=== PATIENT | female | born 1980 | race Caucasian/White ===

== ENCOUNTER 2017-04-10 22:58 | Emergency (ER) | payer OTHER ==
--- NOTE | 2017-04-11 03:05 | ED NURSING NOTES ---
Clinical Report - Nurses [facility] [address] [place] [address] 04/10/2017 23:01 Patient: WAGNER WOODS TRIAGE Triage time 23:12. Acuity: LEVEL 3. --23:22 Torrey Leggett R.N. 23:12 04/10/17. BP: 109/63. HR: 73. RR: 16. O2 saturation: 100%. Temp: 98 F. --23:22 Torrey Leggett R.N. Chief Complaint: ABDOMINAL PAIN. 23:12 04/10/17. --03:23 Torrey Leggett R.N. 23:11 04/10/17. Pain level now 7/10. --03:24 Torrey Leggett R.N. Weight: 61.2 kg. Height/Length: 68 inches. BMI: 20.5. --23:12 Torrey Leggett R.N. Medications None. --23:16 Torrey Leggett R.N. Medication/allergy information source: the patient. --23:22 Torrey Leggett R.N. Allergies No Known Drug Allergy. --23:15 Torrey Leggett R.N. History Arrived by private vehicle. Historian: patient. Accompanied by friend. ( Noticed lump on the right lower quadrant abdomen for about a year and has gotten bigger since. No abdominal pain, nausea or vomiting associated. Patient states that it has not been investigated since she noticed it a year ago.). Last oral intake by patient was (6 hours ago). Treatment CONGRESSIONAL ASSISTANT: None. PAST MEDICAL HX: Last normal menstrual period- started yesterday. SURGERY HX: . Left knee surgery. ( brain biopsy, brain tumor removed 2011). SOCIAL HX: Light tobacco smoker- less than 1/2 a pack per day. Occasional alcohol use. --23:22 Torrey Leggett R.N. PROBLEMS: Cancer. --23:17 Torrey Leggett R.N. Interventions ID band on patient. To room. --23:22 Torrey Leggett R.N. PHYSICAL ASSESSMENT Ambulatory to room. GENERAL / NEURO / PSYCH: Alert. Oriented X 4. Appears in no acute distress. HEENT: Mucous membranes are pink. RESPIRATORY: Respirations not labored. Breath sounds within normal limits. CVS: Normal sinus rhythm noted. GI / : Abdomen soft and nontender. Moderate mass present in the right lower quadrant. Bowel sounds within normal limits. SKIN: Skin is warm and dry. --23:24 Torrey Leggett R.N. NURSING PROGRESS NOTES Patient gowned. Head of bed elevated. Reassurance given. Patient identifiers checked. Call light placed in reach. Side rails up x 1. Bed placed in lowest position. Brakes of bed on. --23:24 Torrey Leggett R.N. 00:11 04/11/2017 Site #1 started via IV in the right antecubital space with an 20g angiocath; one attempt. Blood drawn: rainbow set. Labeled in the presence of the patient. Saline lock flushed with 10 mL saline (lactate). --00:16 Torrey Leggett R.N. 00:23 04/11/2017 Morphine IVP 4 mg given over 5 minute(s) via site #1. Allergies verified, confirmed 5 rights and sedative warning given to the patient. IV patency established. IV site checked: no pain, redness, or swelling. IV flushed thoroughly pre- and post-medication administration. IVP given by RN. --00:23 Torrey Leggett R.N. 00:00 04/11/17. BP: 105/67. HR: 71. RR: 16. O2 saturation: 100%. Temp: deferred. Pain level now: 05/10. --00:25 Torrey Leggett R.N. 00:50 04/11/17. BP: 97/65. HR: 71. RR: 16. O2 saturation: 100%. --00:51 Torrey Leggett R.N. Reassessment after medication administered (Morphine). She is resting quietly. Overall patient status is improved. GI / : The patient reports abdominal pain located in the LLQ. --00:51 Torrey Leggett R.N. 01:17 04/11/2017 Morphine IVP 4 mg given over 5 minute(s) via site #1. Allergies verified, confirmed 5 rights and sedative warning given to the patient and patient's quilt sewer. IV patency established. IV site checked: no pain, redness, or swelling. IV flushed thoroughly pre- and post-medication administration. IVP given by RN. --01:17 Torrey Leggett R.N. Reassessment after intervention (ER Physician trying to reduce hernia). She is calm. Overall patient status is the same- she states feels the same. GI / : The patient reports abdominal pain located in the RLQ. --01:19 Torrey Leggett R.N. <<STRICKEN ENTRY-- 01:18 04/11/17. BP: 105/67. HR: 81. RR: 16. O2 saturation: 100% at 5 liters/minute. --01:19 Torrey Leggett R.N. --END STRIKE>> Correction --02:48 Torrey Leggett R.N. Patient ID band checked for patient name and birthdate: patient confirmed. Instructions provided to collect clean catch urine and patient verbalized understanding. Clean catch urine collected with return of yellow-colored clear urine; odor is normal; sample sent to lab for urinalysis, culture and HCG. Specimen labeled in the presence of the patient. Reassessment after medication administered (Morphine). GI / : The patient reports abdominal pain located in the RLQ is still present but improving and currently mild in severity. --01:51 Torrey Leggett R.N. 01:49 04/11/17. BP: 114/61. HR: 81. RR: 16. O2 saturation: 100%. --01:51 Torrey Leggett R.N. Patient transported to CT. --02:13 Kati Bah 02:27 04/11/17. BP: 108/68. HR: 83. RR: 18. O2 saturation: 100%. Pain level now: 10. --02:28 Kati Bah The patient is resting quietly. --02:28 Kati Bah 01:18 04/11/17. BP: 105/67. HR: 81. RR: 16. O2 saturation: 100% on room air. Pain level now: 04/09. --02:55 Torrey Leggett R.N. DISPOSITION / DISCHARGE Condition at departure: improved. No learning barriers present. Discharge instructions provided and reviewed with the patient. Reviewed medication(s) side effects, precautions, dosing and course information. Prescription(s) given to the patient. Reviewed referral to an oncologist for followup. Summary of care provided to patient. Patient verbalized understanding. Written instructions provided in Hungarian. The patient was discharged home and accompanied by quilt sewer and friend. She left the Emergency Department ambulatory and via private vehicle. Engineer And Geologist driving (friend). --03:20 Torrey Leggett R.N. 03:18 04/11/17. BP: 109/65. HR: 77. RR: 16. O2 saturation: 100%. Temp: 97.4 F. Pain level now: 04/09. --03:20 Torrey Leggett R.N. 03:16 04/11/2017 Site #1 removed upon discharge. Manual pressure and bandaid applied. --03:21 Torrey Leggett R.N. Departure time: 03:21. --03:21 Torrey Leggett R.N. Locked/Released at 04/11/2017 3:24 by Torrey Leggett R.N.
--- NOTE | 2017-04-11 03:05 | ED CLINICAL REPORT ---
Clinical Report - Physicians/Mid Levels [facility] [address] [place] [address] 04/10/2017 23:01 Patient: WAGNER WOODS Time Seen: 2335. Arrived- By private vehicle. Historian- patient. HISTORY OF PRESENT ILLNESS Chief Complaint: ABDOMINAL PAIN. At its maximum, severity described as moderate. When seen in the E.D., severity described as moderate. Modifying factors- worsened by movement. Relieved by rest. It is described as "pain". No radiation. It is described as located in the right lower quadrant. This started past year and is still present and worsening. It was gradual in onset and has been constant but is not gone now. No nausea, loss of appetite, vomiting or diarrhea. No additional abdominal pain. No recent travel. Similar symptoms previously: None. Recent medical care: Not recently seen/assessed. REVIEW OF SYSTEMS No skin rash. All systems otherwise negative, except as recorded above. PAST HISTORY See nurses notes. Medications: None. Allergies: No Known Drug Allergy. SOCIAL HISTORY Never smoker. No alcohol use or drug use. Recent travel- (from [place]). Is a local resident. ADDITIONAL NOTES The nursing notes have been reviewed. PHYSICAL EXAM Vital Signs: 04/10/2017 23:12 BP: 109/63. HR: 73. RR: 16. O2 saturation: 100%. Temp: 98 F. Blood pressure normal. Oxygen saturation normal. Appearance: Alert. Oriented X3. No acute distress. Eyes: Pupils equal, round and reactive to light. Eyes normal inspection. ENT: Ears normal. Nose normal. Pharynx normal. Neck: Normal inspection. Neck supple. CVS: Normal heart rate and rhythm. Heart sounds normal. Pulses normal. Respiratory: No respiratory distress. Breath sounds normal. Chest nontender. Abdomen: Soft. Bowel sounds normal. (right sided abdominal wall bulge that appears to get smaller with constant direct pressure. no overlying skin changes. mild tenderness. it is regular and hard.). Skin: Skin warm and dry. Normal skin color. No rash. Normal skin turgor. Extremities: Extremities exhibit normal ROM. No lower extremity edema. LABS, X-RAYS, AND EKG Laboratory Tests: UA-Culture if indicated: (JENNIFER: 04/11/2017 01:45) ( [facility] 04/11/2017 02:02) Final results Test Result Flag Units (Reference) URINE COLOR YELLOW URINE APPEARANCE CLEAR URINE GLUCOSE NEGATIVE (NEGATIVE) URINE BILIRUBIN NEGATIVE (NEGATIVE) URINE KETONE NEGATIVE (NEGATIVE) URINE SPECIFIC GRAVITY <= 1.005 L (1.010-1.030) URINE PH 6.0 (5.0-8.0) URINE PROTEIN NEGATIVE (NEGATIVE) URINE UROBILINOGEN 0.2 EU/dL (0.2-1.0) URINE NITRITE NEGATIVE (NEGATIVE) URINE BLOOD 3+ (NEGATIVE) URINE LEUK ESTERASE NEGATIVE (NEGATIVE) URINE RBC 0-1 rbc/hpf (0-1) URINE WBC RARE wbc/hpf (0-1) URINE EPITHELIAL CELLS 3-5 EPI/hpf (0-5) URINE BACTERIA TRACE (<1+) (NONE SEEN) URINE COMMENT CULT NOT INDICATED FEW SODIUM URATE CRYSTALS.URINE CULTURES ARE SET-UP BASED ON THE FOLLOWING CRITERIA:POSITIVE NITRITEPOSITIVE LEUKOCYTE ESTERASEGREATER THAN 10 WHITE BLOOD CELLSMODERATE (2+) OR GREATER BACTERIA Urine: (JENNIFER: 04/11/2017 01:45) ( [facility] 04/11/2017 01:54) Final results Test Result Flag Units (Reference) URINE NEGATIVE CBC w Diff: (JENNIFER: 04/10/2017 00:10) ( [facility] 04/11/2017 00:23) Final results Test Result Flag Units (Reference) WHITE BLOOD COUNT 6.1 K/uL (4.5-11.5) RED BLOOD COUNT 3.79 L M/uL (4.00-5.20) HEMOGLOBIN 11.1 L gm/dL (12.0-16.0) HEMATOCRIT 33.4 L % (36.0-46.0) MEAN CELL VOLUME 88 fL (80-100) MEAN CORPUSCULAR HGB 29 pg (26-34) MEAN CORPUSCULAR HGB CONC 33 g/dL (31-37) RED CELL DISTRIBUTION WIDTH 14.0 % (11.6-14.8) PLATELET COUNT 245 K/uL (150-400) NEUTROPHIL % 52.4 % (50-75) LYMPH % 36.8 % (25-40) MONO % 7.2 % (3-14) EOSINOPHIL % 2.5 % (0-4) BASOPHIL % 1.1 % (0-2) Lactate, Serum: (JENNIFER: 04/10/2017 00:10) ( MsgRcvd 04/11/2017 00:44) Final results Test Result Flag Units (Reference) LACTIC ACID 0.8 mmol/L (0.4-2.0) CMP: (JENNIFER: 04/10/2017 00:10) ( MsgRcvd 04/11/2017 00:37) Final results Test Result Flag Units (Reference) GLUCOSE 87 mg/dL (70-110) BUN 10 mg/dL (7-18) CREATININE 0.8 mg/dL (0.6-1.3) Estimated GFR >60 mL/min Estimated GFR- >60 mL/min Note: Persistent reduction over 3 months in eGFR<60 mL/min/1.73 m2 defines CKD. Patients with eGFR values>=60 mL/min/1.73 m2 may also have CKD if evidence ofpersistent proteinuria. Additional information may be foundat www.kidney.org. SODIUM 144 mmol/L (136-145) POTASSIUM 3.6 mmol/L (3.5-5.1) CHLORIDE 105 mmol/L (98-107) CARBON DIOXIDE 30 mmol/L (21-32) CALCIUM 8.7 mg/dL (8.5-10.1) TOTAL PROTEIN 7.2 g/dL (6.4-8.2) ALBUMIN 3.9 g/dL (3.3-5.0) BILIRUBIN, TOTAL 0.3 mg/dL (0.0-1.0) ALKALINE PHOSPHATASE 52 U/L (46-116) AST (SGOT) 11 L U/L (15-37) ALT (SGPT) 19 U/L (12-78) . PROGRESS AND PROCEDURES Course of Care: he patient is a pleasant 36-year-old female withCompaqs past medical history presenting for a vaginal right-sided inguinal mass. On examination, mass appeared to be consistent with right-sided inguinal hernia. Was able to slightly reduce themass on examination with gradual firm pressure to the right groin. Because of this, hernia was likely favored. Laboratory studies were ordered once the first attempt at reduction was not successful. Pain medication was ordered. Had a discussion with patient in regards to the working diagnosis at this time. Also considered inguinal lymphadenopathy versus hematoma. Patient's laboratory studies were noted to be unremarkable. Was unable to reduce the patient's mass on examination. Because of the abnormal circumstances of the patient's history and presentation, was concerned for other etiologies for the patient's inguinal mass. CT scan of the patient's abdomen and pelvis was ordered with contrast. Patient was agreeable to the treatment plan. No other acute findings noted. Patient CT scan was significant for the findings above. No concern for hernia noted. Patient with history of glioblastoma. Would be concerning for metastasis or other malignant etiology. Had a discussion with the patient in regards to the CT scan results and need for follow-up with oncology. Patient states that she does not have an oncologist here as she recently moved here about a month ago. Patient also reports not having a primary care Dr. Was able to find information regards to a oncologist in the area. As well as a primary care office. Discussed with the patient workup here in emergency department: Diagnosis, home care, follow-up, and return precautions. All questions have been answered. The patient expressed understanding of these instructions and was agreeable to them. Disposition: Discharged. Condition: good. CLINICAL IMPRESSION Acute right lower quadrant abdominal pain. 04/10/2017 23:12 BP: 109/63. HR: 73. RR: 16. O2 saturation: 100%. Temp: 98 F. Blood pressure normal. Oxygen saturation normal. Acute right inguinal lymphadenitis INSTRUCTIONS Warnings: SEDATIVE MEDICATION: You were given sedative medication during your visit. Do not drive or operate dangerous machinery. GENERAL WARNINGS: Return or contact your physician immediately if your condition worsens or changes unexpectedly, if not improving as expected, or if other problems arise. SPECIFICALLY, return if you develop pain, fever, vomiting, the inability to keep fluids down, blood in vomitus, blood in diarrhea, fainting or lightheadedness. Your Current Medications: CONTINUE TAKING THE FOLLOWING MEDICATIONS: None*. Prescription Medications: [place] 5 mg / 325 mg tablets: take 1 orally every 6 hours as needed for pain. Dispense twelve (12). No refill. Substitution is permissible. Motrin 600 mg tablets: take 1 tablet orally every 6 hours as needed for pain or swelling. Dispense thirty (30). No refill. Substitution is permissible. (take with food) Follow-up: Return to the emergency department as needed. Follow up with [facility] in three days. Call for an appointment. Reason for referral: . Establish care. Continuity of care. . Summary of care provided to patient via paper. Follow up with a specialist oncology. Call for the next available appointment. Reason for referral: [address] [place] [address]. . Summary of care provided to patient via paper. Screening today revealed the patient's blood pressure to be in the normal range. The patient should follow up with a primary care provider for blood pressure management. Understanding of the discharge instructions verbalized by patient. (Electronically signed by Patrick Rosa Dr. 04/12/2017 6:49)
--- NOTE | 2017-04-11 03:05 | ED ORDER SUMMARY ---
..... Patient: WAGNER WOODS OrderSheet [facility] VisitID: [id number] [address] [place] [address] 36y, F Registration Date/Time: 04/10/2017 ORDER SHEET Weight: 61.2 kg Allergies: No Known Drug Allergy GENERAL ORDERS: CBC w Diff Urgent (23:49 04/10/2017 Tyson Caputo) (Ack 23:55 LMuller) (0:01 Anjana R.N.) CMP Urgent (23:49 04/10/2017 Tyson Caputo) (Ack 23:55 LMuller) (0:01 Anjana R.N.) Lactate, Serum Urgent (:49 04/10/2017 Tyson Caputo) (Ack 23:55 LMuller) (0:01 Anjana R.N.) Pulse oximeter (:49 04/10/2017 Tyson Caputo) (0:01 Anjana R.N.) UA-Culture if indicated Urgent (01:36 04/11/2017 Tyson Caputo) (Ack 1:44 LMuller) (1:48 Anjana R.N.) Urine Urgent (:04/11/2017 Tyson Caputo) (Ack 1:44 LMuller) (1:48 Anjana R.N.) CT Abd/Pel w Cont (No) (gfr >60) Urgent (:36 04/11/2017 Tyson Caputo) (Ack 1:44 LMuller) (2:23 Jaclynger) MEDICATION ORDERS: IV FLUIDS: Morphine IV 4 mg (HIGH ALERT MEDICATION, NOW) (23:49 04/10/2017 Tyson Caputo) (Ack 0:01 Anjana R.N.) (0:23 Anjana R.N.) IV Saline Lock (:49 04/10/2017 Tyson Caputo) (Ack 0:01 Anjana R.N.) (0:16 Anjana R.N.) Morphine IV 4 mg (HIGH ALERT MEDICATION, NOW) (01:08 04/11/2017 Tyson aCputo) (1:17 Anjana R.N.) ORDER SHEET NOTES: [Electronically signed by Torrey Leggett R.N. (03:04/11/2017)] [Electronically signed by Patrick Rosa Dr. (06:49 04/12/2017)] [Electronically locked/signed by Torrey Leggett R.N. (:04/11/2017)]
--- NOTE | 2017-04-11 03:05 | ED ORDER SUMMARY ---
..... Patient: WAGNER WOODS OrderSheet [facility] VisitID: [id number] [address] [place] [address] 36y, F Registration Date/Time: 04/10/2017 ORDER SHEET Weight: 61.2 kg Allergies: No Known Drug Allergy GENERAL ORDERS: CBC w Diff Urgent (23:49 04/10/2017 Tyson Caputo) (Ack 23:55 LMuller) (0:01 Anjana R.N.) CMP Urgent (23:49 04/10/2017 Tyson Caputo) (Ack 23:55 LMuller) (0:01 Anjana R.N.) Lactate, Serum Urgent (:49 04/10/2017 Tyson Caputo) (Ack 23:55 LMuller) (0:01 Anjana R.N.) Pulse oximeter (:49 04/10/2017 Tyson Caputo) (0:01 Anjana R.N.) UA-Culture if indicated Urgent (01:36 04/11/2017 Tyson Caputo) (Ack 1:44 LMuller) (1:48 Anjana R.N.) Urine Urgent (:04/11/2017 Tyson Caputo) (Ack 1:44 LMuller) (1:48 Anjana R.N.) CT Abd/Pel w Cont (No) (gfr >60) Urgent (:36 04/11/2017 Tyson Caputo) (Ack 1:44 LMuller) (2:23 Jaclynger) MEDICATION ORDERS: IV FLUIDS: Morphine IV 4 mg (HIGH ALERT MEDICATION, NOW) (23:49 04/10/2017 Tyson Caputo) (Ack 0:01 Anjana R.N.) (0:23 Anjana R.N.) IV Saline Lock (:49 04/10/2017 Tyson Caputo) (Ack 0:01 Anjana R.N.) (0:16 Anjana R.N.) Morphine IV 4 mg (HIGH ALERT MEDICATION, NOW) (01:08 04/11/2017 Tyson Caputo) (1:17 Anjana R.N.) ORDER SHEET NOTES: [Electronically signed by Torrey Leggett R.N. (03:04/11/2017)] [Electronically signed by Patrick Rosa Dr. (06:49 04/12/2017)] [Electronically locked/signed by Torrey Leggett R.N. (:04/11/2017)]
--- NOTE | 2017-04-11 03:05 | ED CLINICAL REPORT ---
Clinical Report - Physicians/Mid Levels [facility] [address] [place] [address] 04/10/2017 23:01 Patient: WAGNER WOODS Time Seen: [id number]. Arrived- By private vehicle. Historian- patient. HISTORY OF PRESENT ILLNESS Chief Complaint: ABDOMINAL PAIN. At its maximum, severity described as moderate. When seen in the E.D., severity described as moderate. Modifying factors- worsened by movement. Relieved by rest. It is described as "pain". No radiation. It is described as located in the right lower quadrant. This started past year and is still present and worsening. It was gradual in onset and has been constant but is not gone now. No nausea, loss of appetite, vomiting or diarrhea. No additional abdominal pain. No recent travel. Similar symptoms previously: None. Recent medical care: Not recently seen/assessed. REVIEW OF SYSTEMS No skin rash. All systems otherwise negative, except as recorded above. PAST HISTORY See nurses notes. Medications: None. Allergies: No Known Drug Allergy. SOCIAL HISTORY Never smoker. No alcohol use or drug use. Recent travel- (from [place]). Is a local resident. ADDITIONAL NOTES The nursing notes have been reviewed. PHYSICAL EXAM Vital Signs: 04/10/2017 23:12 BP: 109/63. HR: 73. RR: 16. O2 saturation: 100%. Temp: 98 F. Blood pressure normal. Oxygen saturation normal. Appearance: Alert. Oriented X3. No acute distress. Eyes: Pupils equal, round and reactive to light. Eyes normal inspection. ENT: Ears normal. Nose normal. Pharynx normal. Neck: Normal inspection. Neck supple. CVS: Normal heart rate and rhythm. Heart sounds normal. Pulses normal. Respiratory: No respiratory distress. Breath sounds normal. Chest nontender. Abdomen: Soft. Bowel sounds normal. (right sided abdominal wall bulge that appears to get smaller with constant direct pressure. no overlying skin changes. mild tenderness. it is regular and hard.). Skin: Skin warm and dry. Normal skin color. No rash. Normal skin turgor. Extremities: Extremities exhibit normal ROM. No lower extremity edema. LABS, X-RAYS, AND EKG Laboratory Tests: UA-Culture if indicated: (JENNIFER: 04/11/2017 01:45) ( [facility] 04/11/2017 02:02) Final results Test Result Flag Units (Reference) URINE COLOR YELLOW URINE APPEARANCE CLEAR URINE GLUCOSE NEGATIVE (NEGATIVE) URINE BILIRUBIN NEGATIVE (NEGATIVE) URINE KETONE NEGATIVE (NEGATIVE) URINE SPECIFIC GRAVITY <= 1.005 L (1.010-1.030) URINE PH 6.0 (5.0-8.0) URINE PROTEIN NEGATIVE (NEGATIVE) URINE UROBILINOGEN 0.2 EU/dL (0.2-1.0) URINE NITRITE NEGATIVE (NEGATIVE) URINE BLOOD 3+ (NEGATIVE) URINE LEUK ESTERASE NEGATIVE (NEGATIVE) URINE RBC 0-1 rbc/hpf (0-1) URINE WBC RARE wbc/hpf (0-1) URINE EPITHELIAL CELLS 3-5 EPI/hpf (0-5) URINE BACTERIA TRACE (<1+) (NONE SEEN) URINE COMMENT CULT NOT INDICATED FEW SODIUM URATE CRYSTALS.URINE CULTURES ARE SET-UP BASED ON THE FOLLOWING CRITERIA:POSITIVE NITRITEPOSITIVE LEUKOCYTE ESTERASEGREATER THAN 10 WHITE BLOOD CELLSMODERATE (2+) OR GREATER BACTERIA Urine: (JENNIFER: 04/11/2017 01:45) ( [facility] 04/11/2017 01:54) Final results Test Result Flag Units (Reference) URINE NEGATIVE CBC w Diff: (JENNIFER: 04/10/2017 00:10) ( [facility] 04/11/2017 00:23) Final results Test Result Flag Units (Reference) WHITE BLOOD COUNT 6.1 K/uL (4.5-11.5) RED BLOOD COUNT 3.79 L M/uL (4.00-5.20) HEMOGLOBIN 11.1 L gm/dL (12.0-16.0) HEMATOCRIT 33.4 L % (36.0-46.0) MEAN CELL VOLUME 88 fL (80-100) MEAN CORPUSCULAR HGB 29 pg (26-34) MEAN CORPUSCULAR HGB CONC 33 g/dL (31-37) RED CELL DISTRIBUTION WIDTH 14.0 % (11.6-14.8) PLATELET COUNT 245 K/uL (150-400) NEUTROPHIL % 52.4 % (50-75) LYMPH % 36.8 % (25-40) MONO % 7.2 % (3-14) EOSINOPHIL % 2.5 % (0-4) BASOPHIL % 1.1 % (0-2) Lactate, Serum: (JENNIFER: 04/10/2017 00:10) ( MsgRcvd 04/11/2017 00:44) Final results Test Result Flag Units (Reference) LACTIC ACID 0.8 mmol/L (0.4-2.0) CMP: (JENNIFER: 04/10/2017 00:10) ( MsgRcvd 04/11/2017 00:37) Final results Test Result Flag Units (Reference) GLUCOSE 87 mg/dL (70-110) BUN 10 mg/dL (7-18) CREATININE 0.8 mg/dL (0.6-1.3) Estimated GFR >60 mL/min Estimated GFR- >60 mL/min Note: Persistent reduction over 3 months in eGFR<60 mL/min/1.73 m2 defines CKD. Patients with eGFR values>=60 mL/min/1.73 m2 may also have CKD if evidence ofpersistent proteinuria. Additional information may be foundat www.kidney.org. SODIUM 144 mmol/L (136-145) POTASSIUM 3.6 mmol/L (3.5-5.1) CHLORIDE 105 mmol/L (98-107) CARBON DIOXIDE 30 mmol/L (21-32) CALCIUM 8.7 mg/dL (8.5-10.1) TOTAL PROTEIN 7.2 g/dL (6.4-8.2) ALBUMIN 3.9 g/dL (3.3-5.0) BILIRUBIN, TOTAL 0.3 mg/dL (0.0-1.0) ALKALINE PHOSPHATASE 52 U/L (46-116) AST (SGOT) 11 L U/L (15-37) ALT (SGPT) 19 U/L (12-78) . PROGRESS AND PROCEDURES Course of Care: he patient is a pleasant 36-year-old female withCompaqs past medical history presenting for a vaginal right-sided inguinal mass. On examination, mass appeared to be consistent with right-sided inguinal hernia. Was able to slightly reduce themass on examination with gradual firm pressure to the right groin. Because of this, hernia was likely favored. Laboratory studies were ordered once the first attempt at reduction was not successful. Pain medication was ordered. Had a discussion with patient in regards to the working diagnosis at this time. Also considered inguinal lymphadenopathy versus hematoma. Patient's laboratory studies were noted to be unremarkable. Was unable to reduce the patient's mass on examination. Because of the abnormal circumstances of the patient's history and presentation, was concerned for other etiologies for the patient's inguinal mass. CT scan of the patient's abdomen and pelvis was ordered with contrast. Patient was agreeable to the treatment plan. No other acute findings noted. Patient CT scan was significant for the findings above. No concern for hernia noted. Patient with history of glioblastoma. Would be concerning for metastasis or other malignant etiology. Had a discussion with the patient in regards to the CT scan results and need for follow-up with oncology. Patient states that she does not have an oncologist here as she recently moved here about a month ago. Patient also reports not having a primary care Dr. Was able to find information regards to a oncologist in the area. As well as a primary care office. Discussed with the patient workup here in emergency department: Diagnosis, home care, follow-up, and return precautions. All questions have been answered. The patient expressed understanding of these instructions and was agreeable to them. Disposition: Discharged. Condition: good. CLINICAL IMPRESSION Acute right lower quadrant abdominal pain. 04/10/2017 23:12 BP: 109/63. HR: 73. RR: 16. O2 saturation: 100%. Temp: 98 F. Blood pressure normal. Oxygen saturation normal. Acute right inguinal lymphadenitis INSTRUCTIONS Warnings: SEDATIVE MEDICATION: You were given sedative medication during your visit. Do not drive or operate dangerous machinery. GENERAL WARNINGS: Return or contact your physician immediately if your condition worsens or changes unexpectedly, if not improving as expected, or if other problems arise. SPECIFICALLY, return if you develop pain, fever, vomiting, the inability to keep fluids down, blood in vomitus, blood in diarrhea, fainting or lightheadedness. Your Current Medications: CONTINUE TAKING THE FOLLOWING MEDICATIONS: None*. Prescription Medications: [place] 5 mg / 325 mg tablets: take 1 orally every 6 hours as needed for pain. Dispense twelve (12). No refill. Substitution is permissible. Motrin 600 mg tablets: take 1 tablet orally every 6 hours as needed for pain or swelling. Dispense thirty (30). No refill. Substitution is permissible. (take with food) Follow-up: Return to the emergency department as needed. Follow up with [facility] in three days. Call for an appointment. Reason for referral: . Establish care. Continuity of care. . Summary of care provided to patient via paper. Follow up with a specialist oncology. Call for the next available appointment. Reason for referral: [address] [place] [address]. . Summary of care provided to patient via paper. Screening today revealed the patient's blood pressure to be in the normal range. The patient should follow up with a primary care provider for blood pressure management. Understanding of the discharge instructions verbalized by patient. (Electronically signed by Patrick Rosa Dr. 04/12/2017 6:49)
--- NOTE | 2017-04-11 03:05 | ED NURSING NOTES ---
Clinical Report - Nurses [facility] [address] [place] [address] 04/10/2017 23:01 Patient: WAGNER WOODS TRIAGE Triage time 23:12. Acuity: LEVEL 3. --23:22 Torrey Leggett R.N. 23:12 04/10/17. BP: 109/63. HR: 73. RR: 16. O2 saturation: 100%. Temp: 98 F. --23:22 Torrey Leggett R.N. Chief Complaint: ABDOMINAL PAIN. 23:12 04/10/17. --03:23 Torrey Leggett R.N. 23:11 04/10/17. Pain level now 7/10. --03:24 Torrey Leggett R.N. Weight: 61.2 kg. Height/Length: 68 inches. BMI: 20.5. --23:12 Torrey Leggett R.N. Medications None. --23:16 Torrey Leggett R.N. Medication/allergy information source: the patient. --23:22 Torrey Leggett R.N. Allergies No Known Drug Allergy. --23:15 Torrey Leggett R.N. History Arrived by private vehicle. Historian: patient. Accompanied by friend. ( Noticed lump on the right lower quadrant abdomen for about a year and has gotten bigger since. No abdominal pain, nausea or vomiting associated. Patient states that it has not been investigated since she noticed it a year ago.). Last oral intake by patient was (6 hours ago). Treatment PICKING MACHINE OPERATOR: None. PAST MEDICAL HX: Last normal menstrual period- started yesterday. SURGERY HX: . Left knee surgery. ( brain biopsy, brain tumor removed 2011). SOCIAL HX: Light tobacco smoker- less than 1/2 a pack per day. Occasional alcohol use. --23:22 Torrey Leggett R.N. PROBLEMS: Cancer. --23:17 Torrey Leggett R.N. Interventions ID band on patient. To room. --23:22 Torrey Leggett R.N. PHYSICAL ASSESSMENT Ambulatory to room. GENERAL / NEURO / PSYCH: Alert. Oriented X 4. Appears in no acute distress. HEENT: Mucous membranes are pink. RESPIRATORY: Respirations not labored. Breath sounds within normal limits. CVS: Normal sinus rhythm noted. GI / : Abdomen soft and nontender. Moderate mass present in the right lower quadrant. Bowel sounds within normal limits. SKIN: Skin is warm and dry. --23:24 Torrey Leggett R.N. NURSING PROGRESS NOTES Patient gowned. Head of bed elevated. Reassurance given. Patient identifiers checked. Call light placed in reach. Side rails up x 1. Bed placed in lowest position. Brakes of bed on. --23:24 Torrey Leggett R.N. 00:11 04/11/2017 Site #1 started via IV in the right antecubital space with an 20g angiocath; one attempt. Blood drawn: rainbow set. Labeled in the presence of the patient. Saline lock flushed with 10 mL saline (lactate). --00:16 Torrey Leggett R.N. 00:23 04/11/2017 Morphine IVP 4 mg given over 5 minute(s) via site #1. Allergies verified, confirmed 5 rights and sedative warning given to the patient. IV patency established. IV site checked: no pain, redness, or swelling. IV flushed thoroughly pre- and post-medication administration. IVP given by RN. --00:23 Torrey Leggett R.N. 00:00 04/11/17. BP: 105/67. HR: 71. RR: 16. O2 saturation: 100%. Temp: deferred. Pain level now: 05/10. --00:25 Torrey Leggett R.N. 00:50 04/11/17. BP: 97/65. HR: 71. RR: 16. O2 saturation: 100%. --00:51 Torrey Leggett R.N. Reassessment after medication administered (Morphine). She is resting quietly. Overall patient status is improved. GI / : The patient reports abdominal pain located in the LLQ. --00:51 Torrey Leggett R.N. 01:17 04/11/2017 Morphine IVP 4 mg given over 5 minute(s) via site #1. Allergies verified, confirmed 5 rights and sedative warning given to the patient and patient's manager fine. IV patency established. IV site checked: no pain, redness, or swelling. IV flushed thoroughly pre- and post-medication administration. IVP given by RN. --01:17 Torrey Leggett R.N. Reassessment after intervention (ER Physician trying to reduce hernia). She is calm. Overall patient status is the same- she states feels the same. GI / : The patient reports abdominal pain located in the RLQ. --01:19 Torrey Leggett R.N. <<STRICKEN ENTRY-- 01:18 04/11/17. BP: 105/67. HR: 81. RR: 16. O2 saturation: 100% at 5 liters/minute. --01:19 Torrey Leggett R.N. --END STRIKE>> Correction --02:48 Torrey Leggett R.N. Patient ID band checked for patient name and birthdate: patient confirmed. Instructions provided to collect clean catch urine and patient verbalized understanding. Clean catch urine collected with return of yellow-colored clear urine; odor is normal; sample sent to lab for urinalysis, culture and HCG. Specimen labeled in the presence of the patient. Reassessment after medication administered (Morphine). GI / : The patient reports abdominal pain located in the RLQ is still present but improving and currently mild in severity. --01:51 Torrey Leggett R.N. 01:49 04/11/17. BP: 114/61. HR: 81. RR: 16. O2 saturation: 100%. --01:51 Torrey Leggett R.N. Patient transported to CT. --02:13 Kati Bah 02:27 04/11/17. BP: 108/68. HR: 83. RR: 18. O2 saturation: 100%. Pain level now: 10. --02:28 Kati Bah The patient is resting quietly. --02:28 Kati Bah 01:18 04/11/17. BP: 105/67. HR: 81. RR: 16. O2 saturation: 100% on room air. Pain level now: 04/09. --02:55 Torrey Leggett R.N. DISPOSITION / DISCHARGE Condition at departure: improved. No learning barriers present. Discharge instructions provided and reviewed with the patient. Reviewed medication(s) side effects, precautions, dosing and course information. Prescription(s) given to the patient. Reviewed referral to an oncologist for followup. Summary of care provided to patient. Patient verbalized understanding. Written instructions provided in Amharic. The patient was discharged home and accompanied by manager fine and friend. She left the Emergency Department ambulatory and via private vehicle. Scraper Hand driving (friend). --03:20 Torrey Leggett R.N. 03:18 04/11/17. BP: 109/65. HR: 77. RR: 16. O2 saturation: 100%. Temp: 97.4 F. Pain level now: 04/09. --03:20 Torrey Leggett R.N. 03:16 04/11/2017 Site #1 removed upon discharge. Manual pressure and bandaid applied. --03:21 Torrey Leggett R.N. Departure time: 03:21. --03:21 Torrey Leggett R.N. Locked/Released at 04/11/2017 3:24 by Torrey Leggett R.N.
--- NOTE | 2017-04-11 10:50 | DIAGNOSTIC IMAGING REPORT ---
PROCEDURE: ABDOMEN/PELVIS WITH CONTRAST CLINICAL INDICATION: LIKELY RIGHT INGUINAL HERNIA/MASS TECHNIQUE: 125 ml of Isovue 300 were injected intravenously and axial images were obtained of the abdomen and pelvis with sagittal and coronal reformations. COMPARISON: None. FINDINGS: ABDOMEN: Clear lung bases. Normal sized heart. No hiatal hernia. The liver, gallbladder, adrenal glands, kidneys, pancreas and spleen are normal. The abdominal aorta is normal in its course and caliber. There are no suspicious calcifications, retroperitoneal adenopathy or masses. The stomach, upper bowel loops, and mesentery are normal. No free fluid or inflammation. Ovoid soft tissue mass in the right anterior abdominal wall arising above the inguinal canal measuring approximately 2.4 x 1.9 x 2.2 cm. Its epicenter is the superficial rectus muscle fascia. The deep border of the rectus muscle is uninvolved. The mass is slightly hyperdense to muscle/mildly enhancing. The adjacent subcutaneous vasculature and the underlying inferior epigastric vasculature are uninvolved. The adjacent rectus muscle remains normal in appearance. PELVIS: Urinary bladder wall is uniformly mildly thickened. The appendix and pelvic small bowel loops are normal. Normal to mildly increased amount of stool in the colon and rectum. The uterus, ovaries, urinary bladder, and pelvic vessels are normal. No adenopathy, free fluid, or pelvic mass. Small sclerotic foci in the right ilium bone. Otherwise normal osseous structures. IMPRESSION: 1. 2.4 cm intramuscular/nito muscular soft tissue mass in the right lower quadrant. Etiology is uncertain but differential diagnosis includes benign processes and tumors, and malignant neoplasms, such as nerve sheath tumor, neurofibroma, hemangioma, fibromatosis, malignant fibrous histiocytoma, metastatic disease, and soft tissue sarcomas. Benign processes such as granulomatous change or reactive adenopathy are also diagnostic considerations. Hematoma, given appearance, is felt less likely. 2. Mild diffuse urinary bladder wall thickening. This may be seen in cystitis. Correlate with urinary analysis. 3. Preliminary report by Dr. Marshall of [facility] radiology. 4. Subsequently discussed with Dr. Rosa in the emergency room. All CT scans at this facility use dose modulation, iterative reconstruction, and/or weight-based dosing when appropriate to reduce radiation dose to as low as reasonably achievable.
--- NOTE | 2017-04-12 06:50 | ED MAR SUMMARY ---
..... Medication Administration Record [address] [place] [address] Patient: WAGNER WOODS Visit ID: [id number] 36y, F Weight: 61.2 kg Height/Length: 68 in BMI: 20.5 ALLERGIES: No Known Drug Allergy Given 00:23 04/11/2017 Torrey Leggett R.N. Medication Administered: MORPHINE [IVP], Dose: 4 mg IVP over 5 minute(s), Site: #1 right AC. Medication Ordered: Morphine IV 4 mg (HIGH ALERT MEDICATION, NOW). Given 01:17 04/11/2017 Torrey Leggett RJonathon Medication Administered: MORPHINE [IVP], Dose: 4 mg IVP over 5 minute(s), Site: #1 right AC. Medication Ordered: Morphine IV 4 mg (HIGH ALERT MEDICATION, NOW).
--- NOTE | 2017-04-12 06:50 | ED MED RECONCILIATION SUMMARY ---
Patient: WAGNER WOODS Medication Reconciliation Report [facility] VisitID: [id number] [address] [place] [address] 36y, F Registration Date/Time: 04/10/2017 Weight: 61.2 kg Height/Length: 68 in. BMI: 20.5 ALLERGIES: No Known Drug Allergy The patient's Home Medications are listed below: NONE. The source(s) of the original Home Medication information: patient The following Medications were given to the patient in the Emergency Department: Morphine [IVP] IVP 4 mg, administered: 04/11/2017 12:23:00 AM Morphine [IVP] IVP 4 mg, administered: 04/11/2017 1:17:00 AM The following Medications were prescribed to the patient: [place] 5 mg / 325 mg tablets: take 1 orally every 6 hours as needed for pain. Dispense twelve (12). No refill. Substitution is permissible. -- Patrick Rosa Dr. Motrin 600 mg tablets: take 1 tablet orally every 6 hours as needed for pain or swelling. Dispense thirty (30). No refill. Substitution is permissible.(take with food) -- Patrick Rosa Dr.
--- NOTE | 2017-04-12 06:50 | ED MAR SUMMARY ---
..... Medication Administration Record [facility] [address] [place] [address] Patient: WAGNER WOODS Visit ID: [id number] 36y, F Weight: 61.2 kg Height/Length: 68 in BMI: 20.5 ALLERGIES: No Known Drug Allergy Given 00:23 04/11/2017 Torrey Leggett R.N. Medication Administered: MORPHINE [IVP], Dose: 4 mg IVP over 5 minute(s), Site: #1 right AC. Medication Ordered: Morphine IV 4 mg (HIGH ALERT MEDICATION, NOW). Given 01:17 04/11/2017 Torrey Leggett RJonathon Medication Administered: MORPHINE [IVP], Dose: 4 mg IVP over 5 minute(s), Site: #1 right AC. Medication Ordered: Morphine IV 4 mg (HIGH ALERT MEDICATION, NOW).
--- NOTE | 2017-04-12 06:50 | ED MED RECONCILIATION SUMMARY ---
Patient: WAGNER WOODS Medication Reconciliation Report [facility] VisitID: [id number] [address] [place] [address] 36y, F Registration Date/Time: 04/10/2017 Weight: 61.2 kg Height/Length: 68 in. BMI: 20.5 ALLERGIES: No Known Drug Allergy The patient's Home Medications are listed below: NONE. The source(s) of the original Home Medication information: patient The following Medications were given to the patient in the Emergency Department: Morphine [IVP] IVP 4 mg, administered: 04/11/2017 12:23:00 AM Morphine [IVP] IVP 4 mg, administered: 04/11/2017 1:17:00 AM The following Medications were prescribed to the patient: [place] 5 mg / 325 mg tablets: take 1 orally every 6 hours as needed for pain. Dispense twelve (12). No refill. Substitution is permissible. -- Patrick Rosa Dr. Motrin 600 mg tablets: take 1 tablet orally every 6 hours as needed for pain or swelling. Dispense thirty (30). No refill. Substitution is permissible.(take with food) -- Patrick Rosa Dr.
--- NOTE | 2017-04-12 06:50 | ED DISCHARGE INSTRUCTIONS ---
Patient: WAGNER WOODS General Instructions [facility] VisitID: [id number] [place] [address] 36y, F Registration Date/Time: 04/10/2017 Acute right lower quadrant abdominal pain. 04/10/2017 23:12 BP: 109/63. HR: 73. RR: 16. O2 saturation: 100%. Temp: 98 F. Blood pressure normal. Oxygen saturation normal. Acute right inguinal lymphadenitis INSTRUCTIONS Warnings: SEDATIVE MEDICATION: You were given sedative medication during your visit. Do not drive or operate dangerous machinery. GENERAL WARNINGS: Return or contact your physician immediately if your condition worsens or changes unexpectedly, if not improving as expected, or if other problems arise. SPECIFICALLY, return if you develop pain, fever, vomiting, the inability to keep fluids down, blood in vomitus, blood in diarrhea, fainting or lightheadedness. Your Current Medications: CONTINUE TAKING THE FOLLOWING MEDICATIONS: None*. Prescription Medications: Hancock 5 mg / 325 mg tablets: take 1 orally every 6 hours as needed for pain. Dispense twelve (12). No refill. Substitution is permissible. Motrin 600 mg tablets: take 1 tablet orally every 6 hours as needed for pain or swelling. Dispense thirty (30). No refill. Substitution is permissible. (take with food) Follow-up: Return to the emergency department as needed. Follow up with [facility] in three days. Call for an appointment. Reason for referral: . Establish care. Continuity of care. . Summary of care provided to patient via paper. Follow up with a specialist oncology. Call for the next available appointment. Reason for referral: [facility] [place] [id number]. . Summary of care provided to patient via paper. Screening today revealed the patient's blood pressure to be in the normal range. The patient should follow up with a primary care provider for blood pressure management. Understanding of the discharge instructions verbalized by patient. ADDITIONAL INFORMATION Abdominal Pain, Unknown Cause (Female) The exact cause of your abdominal (stomach) pain is not certain. This does not mean that this is something to worry about, or the right tests were not done. Everyone likes to know the exact cause of the problem, but sometimes with abdominal pain, there is no clear-cut cause, and this could be a good thing. The good news is that your symptoms can be treated, and you will feel better. Your condition does not seem serious now; however, sometimes the signs of a serious problem may take more time to appear. For this reason,it is important for you to watch for any new symptoms, problems,or worsening of your condition. Over the next few days, the abdominal pain may come and go, or be continuous. Other common symptoms can include nausea and vomiting. Sometimes it can be difficult to tell if you feel nauseous, you may just feel bad and not associate that feeling with nausea. Constipation, diarrhea, and a fever may go along with the pain. The pain may continue even if treated correctly over the following days. Depending on how things go, sometimes the cause can become clear and may require further or different treatment. Additional evaluations, medications, or tests may be needed. Home care Your health care provider may prescribe medications for pain, symptoms, or an infection. Follow the health care provider's instructions for taking these medications. General care Rest until your next exam. No strenuous activities. Try to find positions that ease discomfort. A small pillow placed on the abdomen may help relieve pain. Something warm on your abdomen (such as a heating pad) may help, but be careful not to burn yourself. Diet Do not force yourself to eat, especially if having cramps, vomiting, or diarrhea. Water is important so you do not get dehydrated. Soup may also be good. Sports drinks may also help, especially if they are not too acidic. Make sure you don't drink sugary drinks as this can make things worse. Take liquids in small amounts. Do not guzzle them. Caffeine sometimes makes the pain and cramping worse. Avoid dairy products if you have vomiting or diarrhea. Don't eat large amounts at a time. Wait a few minutes between bites. Eat a diet low in fiber (called a low-residue diet). Foods allowed include refined breads, white rice, fruit and vegetable juices without pulp, tender meats. These foods will pass more easily through the intestine. Avoid whole-grain foods, whole fruits and vegetables, meats, seeds and nuts, fried or fatty foods, dairy, alcohol and spicy foods until your symptoms go away. Follow-up care Follow up with your health care provider as instructed, or if your pain does not begin to improve in the next 24 hours. When to seek medical care Seek prompt medical care if any of the following occur: Pain gets worse or moves to the right lower abdomen New or worsening vomiting or diarrhea Swelling of the abdomen Unable to pass stool for more than three days Fever of 100.4F (38C) or higher, or as directed by your healthcare provider. Blood in vomit or bowel movements (dark red or black color) Jaundice (yellow color of eyes and skin) Weakness, dizziness Chest, arm, back, neck or jaw pain Unexpected vaginal bleeding or missed period Call 911 Call emergency services if any of the following occur: Trouble breathing Confusion Fainting or loss of consciousness Rapid heart rate Seizure Lymph Node Swelling [Local, No Antibiotic Tx] You have a swollen lymph node that is not infected. The lymph nodes are part of the immune system. They are found under the jaw and along the side of the neck, in the armpits and in the groin. A nearby infection or inflammation causes the lymph nodes in that area to swell. They may also be mildly tender. This is normal. Antibiotics are not used for a swollen lymph node that is not infected. Hot compresses and pain control are used to treat this condition. The pain will decrease over the next 7-10 days. The swelling may take several months to go away. Rarely, a bacterial infection occurs inside the lymph node, itself. When this happens the lymph node becomes very painful and the nearby skin gets red and warm. There may also be a fever. If this happens, contact your doctor since antibiotics and sometimes surgical drainage will be needed. Home Care: Make a hot compress by running hot water over a face cloth. Apply the compress to the sore area until it cools off. Repeat this for 20 minutes. Apply the hot compress three times a day for the first three days or until the pain and redness begin to improve. The heat will increase the blood flow to the area and speed the healing process. You may use acetaminophen (Tylenol) or ibuprofen (Motrin, Advil) to control pain and fever, unless another medicine was prescribed for this. Do not use ibuprofen in children under six months of age. [NOTE: If you have chronic liver or kidney disease or ever had a stomach ulcer or GI bleeding, talk with your doctor before using these medicines.] (Aspirin should never be used in anyone under 18 years of age who is ill with a fever. It may cause severe liver damage.) Follow Up with your doctor or this facility as directed. Get Prompt Medical Attention if any of the following occur: Redness over the lymph node Increased swelling or pain in the lymph node Pus or fluid drainage from the lymph node Difficulty breathing or swallowing Fever of 100.4F (38C) oral or higher, not better with fever medication Hydrocodone Bitartrate, Acetaminophen Oral tablet What is this medicine? ACETAMINOPHEN; HYDROCODONE (a set a ROB sarah fen; danya droe KOE done) is a pain reliever. It is used to treat mild to moderate pain. How should I use this medicine? Take this medicine by mouth. Swallow it with a full glass of water. Follow the directions on the prescription label. If the medicine upsets your stomach, take the medicine with food or milk. Do not take more than you are told to take. Talk to your drying machine back tender regarding the use of this medicine in children. This medicine is not approved for use in children. What side effects may I notice from receiving this medicine? Side effects that you should report to your doctor or health care support representative as soon as possible: allergic reactions like skin rash, itching or hives, swelling of the face, lips, or tongue breathing problems confusion feeling faint or lightheaded, falls stomach pain yellowing of the eyes or skin Side effects that usually do not require medical attention (report to your doctor or health care support representative if they continue or are bothersome): nausea, vomiting stomach upset What may interact with this medicine? alcohol antihistamines isoniazid medicines for depression, anxiety, or psychotic disturbances medicines for sleep muscle relaxants naltrexone narcotic medicines (opiates) for pain phenobarbital ritonavir tramadol What if I miss a dose? If you miss a dose, take it as soon as you can. If it is almost time for your next dose, take only that dose. Do not take double or extra doses. Where should I keep my medicine? Keep out of the reach of children. This medicine can be abused. Keep your medicine in a safe place to protect it from theft. Do not share this medicine with anyone. Selling or giving away this medicine is dangerous and against the law. Store at room temperature between 15 and 30 degrees C (59 and 86 degrees F). Protect from light. Keep container tightly closed. Throw away any unused medicine after the expiration date. Discard unused medicine and used packaging carefully. Pets and children can be harmed if they find used or lost packages. What should I tell my health care provider before I take this medicine? They need to know if you have any of these conditions: brain tumor Crohn's disease, inflammatory bowel disease, or ulcerative colitis drink more than 3 alcohol-containing drinks per day drug abuse or addiction head injury heart or circulation problems kidney disease or problems going to the bathroom liver disease lung disease, asthma, or breathing problems an unusual or allergic reaction to acetaminophen, hydrocodone, other opioid analgesics, other medicines, foods, dyes, or preservatives or trying to get breast-feeding What should I watch for while using this medicine? Tell your doctor or health care support representative if your pain does not go away, if it gets worse, or if you have new or a different type of pain. You may develop tolerance to the medicine. Tolerance means that you will need a higher dose of the medicine for pain relief. Tolerance is normal and is expected if you take the medicine for a long time. Do not suddenly stop taking your medicine because you may develop a severe reaction. Your body becomes used to the medicine. This does NOT mean you are addicted. Addiction is a behavior related to getting and using a drug for a non-medical reason. If you have pain, you have a medical reason to take pain medicine. Your doctor will tell you how much medicine to take. If your doctor wants you to stop the medicine, the dose will be slowly lowered over time to avoid any side effects. You may get drowsy or dizzy when you first start taking the medicine or change doses. Do not drive, use machinery, or do anything that may be dangerous until you know how the medicine affects you. Stand or sit up slowly. There are different types of narcotic medicines (opiates) for pain. If you take more than one type at the same time, you may have more side effects. Give your health care provider a list of all medicines you use. Your doctor will tell you how much medicine to take. Do not take more medicine than directed. Call emergency for help if you have problems breathing. The medicine will cause constipation. Try to have a bowel movement at least every 2 to 3 days. If you do not have a bowel movement for 3 days, call your doctor or health care support representative. Too much acetaminophen can be very dangerous. Do not take Tylenol (acetaminophen) or medicines that contain acetaminophen with this medicine. Many non-prescription medicines contain acetaminophen. Always read the labels carefully. Ibuprofen Oral tablet What is this medicine? IBUPROFEN (eye BYOO proe fen) is a non-steroidal anti-inflammatory drug (NSAID). It is used for dental pain, fever, headaches or migraines, osteoarthritis, rheumatoid arthritis, or painful monthly periods. It can also relieve minor aches and pains caused by a cold, flu, or sore throat. How should I use this medicine? Take this medicine by mouth with a glass of water. Follow the directions on the prescription label. Take this medicine with food if your stomach gets upset. Try to not lie down for at least 10 minutes after you take the medicine. Take your medicine at regular intervals. Do not take your medicine more often than directed. A special MedGuide will be given to you by the pharmacist with each prescription and refill. Be sure to read this information carefully each time. Talk to your drying machine back tender regarding the use of this medicine in children. Special care may be needed. What side effects may I notice from receiving this medicine? Side effects that you should report to your doctor or health care support representative as soon as possible: allergic reactions like skin rash, itching or hives, swelling of the face, lips, or tongue black or bloody stools, blood in the urine or in vomit breathing problems changes in vision chest pain general ill feeling or flu-like symptoms nausea or vomiting redness, blistering, peeling or loosening of the skin, including inside the mouth slurred speech or weakness on one side of the body stomach pain unexplained weight gain or swelling unusually weak or tired yellowing of eyes or skin Side effects that usually do not require medical attention (report to your doctor or health care support representative if they continue or are bothersome): constipation or diarrhea dizziness gas or heartburn stomach upset What may interact with this medicine? Do not take this medicine with any of the following medications: cidofovir ketorolac methotrexate pemetrexed This medicine may also interact with the following medications: alcohol aspirin diuretics lithium other drugs for inflammation like prednisone warfarin What if I miss a dose? If you miss a dose, take it as soon as you can. If it is almost time for your next dose, take only that dose. Do not take double or extra doses. Where should I keep my medicine? Keep out of the reach of children. Store at room temperature between 15 and 30 degrees C (59 and 86 degrees F). Keep container tightly closed. Throw away any unused medicine after the expiration date. What should I tell my health care provider before I take this medicine? They need to know if you have any of these conditions: asthma cigarette smoker drink more than 3 alcohol containing drinks a day heart disease or circulation problems such as heart failure or leg edema (fluid retention) high blood pressure kidney disease liver disease stomach bleeding or ulcers an unusual or allergic reaction to ibuprofen, aspirin, other NSAIDS, other medicines, foods, dyes, or preservatives or trying to get breast-feeding What should I watch for while using this medicine? Tell your doctor or healthcare professional if your symptoms do not start to get better or if they get worse. This medicine does not prevent heart attack or stroke. In fact, this medicine may increase the chance of a heart attack or stroke. The chance may increase with longer use of this medicine and in people who have heart disease. If you take aspirin to prevent heart attack or stroke, talk with your doctor or health care support representative. Do not take other medicines that contain aspirin, ibuprofen, or naproxen with this medicine. Side effects such as stomach upset, nausea, or ulcers may be more likely to occur. Many medicines available without a prescription should not be taken with this medicine. This medicine can cause ulcers and bleeding in the stomach and intestines at any time during treatment. Ulcers and bleeding can happen without warning symptoms and can cause . To reduce your risk, do not smoke cigarettes or drink alcohol while you are taking this medicine. You may get drowsy or dizzy. Do not drive, use machinery, or do anything that needs mental alertness until you know how this medicine affects you. Do not stand or sit up quickly, especially if you are an older patient. This reduces the risk of dizzy or fainting spells. This medicine can cause you to bleed more easily. Try to avoid damage to your teeth and gums when you brush or floss your teeth. You have been given the following additional information: Abdominal Pain, Unknown Cause, (Female) Cervical Adenitis, No Antibiotic Hydrocodone Bitartrate, Acetaminophen Oral tablet Ibuprofen Oral tablet (Electronically signed by Patrick Rosa Dr. 04/12/2017 6:49)
== END 2017-04-11 00:26 | disposition home or self-care (01) ==
LOC: ED SRH 22:58
DX: L04.8 Acute lymphadenitis of other sites (principal); R10.31 Right lower quadrant pain; Z85.841 Personal history of malignant neoplasm of brain
CPT/HCPCS: 90004; 90100; 92031; 93070; 95059